=== PATIENT | male | born 1960 | race Caucasian/White ===

== ENCOUNTER 2018-01-30 08:48 | Emergency (ER) | payer OTHER ==
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
[2018-01-30] MEDS ORDERED: DIPHTH/TETANUS/ACEL. PERTUSSIS IM ONLY ONE (09:00)
[2018-01-30] MEDS ORDERED: TETRACAIN/EPI/LIDO GEL 3ML SYR TP ONE (10:10)
[2018-01-30] MEDS ORDERED: CEPH500T7 PO (10:56)
[2018-01-30 11:00] VITALS: BP 116/81
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
== END 2018-01-30 11:54 | disposition home or self-care (01) ==
LOC: ER 09:02
DX: S60.511A Abrasion of right hand, initial encounter (principal); V48.5XXA Car driver injured in noncollision transport accident in traffic accident, initial encounter
CPT/HCPCS: 70450; 90471; 90715; 99284

== ENCOUNTER → 2018-01-30 | Outpatient (CLI) | payer OTHER ==
[~2018-01-30] MED LIST: CEPH500T7 PO
== END ==
LOC: AMB 07:41
PROVIDERS: ATTEND Nurse Practitioner
DX: S60.511A Abrasion of right hand, initial encounter (principal); S00.83XA Contusion of other part of head, initial encounter; V48.5XXA Car driver injured in noncollision transport accident in traffic accident, initial encounter; Y92.411 Interstate highway as the place of occurrence of the external cause
CPT/HCPCS: A0425; A0427